=== PATIENT | male | born 1950 ===

== ENCOUNTER → 2018-04-18 | Outpatient (CLI) | payer OTHER | LOC: CIMAGING 12:50 | PROVIDERS: ATTEND Orthopaedic Surgery | DX: M16.11 Unilateral primary osteoarthritis, right hip (principal) | CPT/HCPCS: 36415-PO; 73700-PO ==

== ENCOUNTER 2018-04-27 08:00 | Inpatient (IN) | payer OTHER ==
--- NOTE | 2018-04-27 06:26 | PDHPUP ---
History & Physical Update H&P update statement: This history and physical update is based on an assessment of the patient which was completed after admission or registration (within 24 hours), but prior to the surgery/procedure. H&P update: H&P reviewed & patient examined, no change in patient's condition since H&P completed
[~2018-04-27 08:00] MED LIST: ROPIVACAINE 0.2% 80 MG, EPINEPHrine 0.2 MG, KETOROLAC TROMETHAMINE 30 MG in SYRINGE 0 ML IU ONE; TRANEXAMIC ACID 3,000 MG in NS (SYRINGE) 50 ML IRR ONE
[2018-04-27] MEDS ORDERED: TRANEXAMIC ACID 3,000 MG/50 ML BAG IRR ONE (08:40)
[2018-04-27] MEDS ORDERED: ACETAMINOPHEN 325 MG TAB PO ONE (10:21)
[2018-04-27] MEDS ORDERED: FAMOTIDINE 20 MG TAB PO ONE (10:21)
[2018-04-27] MEDS ORDERED: ceFAZolin 2 GM/DEXTROSE 100 ML IV ONE (10:21)
[2018-04-27] MEDS ORDERED: DEXAMETHASONE 4 MG/ML VIAL IVP ONE (10:21)
[2018-04-27] MEDS ORDERED: LIDOCAINE 1% 2 ML INJ ID PRN (10:22)
[2018-04-27] MEDS ORDERED: LR 1,000 ML IV ONE (10:22)
[2018-04-27] MEDS ORDERED: MIDAZOLAM 2 MG/2 ML VIAL IVP ONE ×2 (11:08→11:41)
--- NOTE | 2018-04-27 11:08 | PDANEPAE ---
ANE History of Present Illness here for R DAVIDSON ANE Past Medical History - Cardiovascular History Hx Hypertension: No Hx Arrhythmias: No Hx Chest Pain: No Hx Coronary Artery / Peripheral Vascular Disease: No Hx CHF / Valvular Disease: No Hx Palpitations: No - Pulmonary History Hx COPD: No Hx Asthma/Reactive Airway Disease: Yes Hx Recent Upper Respiratory Infection: No Hx Oxygen in Use at Home: No Hx Sleep Apnea: No Sleep Apnea Screening Result - Last Documented: Negative Pulmonary History Comment: ASTHMA MANY YEARS UNAWARE OF WHAT TRIGGERS HAS INHALER - Neurologic History Hx Cerebrovascular Accident: No Hx Seizures: No Hx Dementia: No - Endocrine History Hx Diabetes: No - Renal History Hx Renal Disorders: No - Liver History Hx Hepatic Disorders: No - Neurological & Psychiatric Hx Hx Neurological and Psychiatric Disorders: No - Cancer History Hx Cancer: No - Congenital Disorder History Hx Congenital Disorders: No - GI History Hx Gastrointestinal Disorders: No - Other Health History Other Health History: OSTEOARTHRITIS. DENTAL IMPLANT - Chronic Pain History Chronic Pain: Yes (RUTH KNEES, RT HIP) - Surgical History Prior Surgeries: LT SHLDR RTC. RT KNEE SCOPE. RT TIB/FIB ANE Review of Systems Review of systems is: negative Review of Systems: - Exercise capacity Exercise capacity: >=4 METS METS (RN): 6 METS ANE Patient History - Allergies Allergies/Adverse Reactions: No Known Allergies Allergy (Unverified 03/15/18 11:27) - Home Medications Home medications: home medication list seen and reviewed Home Medications: Ibuprofen [Motrin (*)] 200 mg PO DAILY PRN 03/15/18 [Last Taken 04/13/18] - NPO status NPO Status: no food or drink >8 hours NPO Since - Liquids (Date): 04/27/18 NPO Since - Liquids (Time): 10:00 NPO Since - Solids (Date): 04/26/18 NPO Since - Solids (Time): 22:00 - Anes Hx Anes Hx: no prior problems - Smoking Hx Smoking Status: Never smoked ANE Labs/Vital Signs - Vital Signs Blood Pressure: 133/93 Heart Rate: 65 Respiratory Rate: 12 O2 Sat (%): 95 Height: 172.72 cm Weight: 88.451 kg ANE Physical Exam - Airway Neck exam: FROM Mallampati Score: Class 1 - Pulmonary Pulmonary: no respiratory distress - Cardiovascular Cardiovascular: regular rate and rhythym ANE Anesthesia Plan Anesthesia Plan: spinal
[2018-04-27] MEDS ORDERED: PROPOFOL/EMULSION 500 MG/50 ML BOTTLE IV ONE (11:55)
[2018-04-27] MEDS ORDERED: PROPOFOL 200 MG/20 ML VIAL ONE (12:39)
[2018-04-27] MEDS ORDERED: PHENYLEPHRINE HCL 100 MCG/ML SYR ONE (12:41)
[2018-04-27] MEDS ORDERED: diphenhydrAMINE 25 MG CAP PO PRN (13:22)
[2018-04-27] MEDS ORDERED: BISACODYL 10 MG SUPP PR PRN (13:22)
[2018-04-27] MEDS ORDERED: PROMETHAZINE HCL 25 MG/ML INJ IVP PRN (13:22)
[2018-04-27] MEDS ORDERED: ONDANSETRON DISINTEGRATING 4 MG TAB PO PRN (13:22)
[2018-04-27] MEDS ORDERED: MAGNESIUM HYDROXIDE 30 ML UDCUP PO PRN (13:22)
[2018-04-27] MEDS ORDERED: PROMETHAZINE HCL 25 MG SUPPR PR PRN (13:22)
[2018-04-27] MEDS ORDERED: DIPHENOXYLATE/ATROPINE LOMOTIL 1 TAB PO PRN (13:22)
[2018-04-27] MEDS ORDERED: ONDANSETRON 4 MG/2 ML VIAL IVP PRN (13:22)
[2018-04-27] MEDS ORDERED: LACTULOSE 20 GM/30 ML UDCUP PO PRN (13:22)
[2018-04-27] MEDS ORDERED: TEMAZEPAM 15 MG CAP PO PRN (13:22)
[2018-04-27] MEDS ORDERED: oxyCODONE IR 5 MG TAB PO PRN (13:22)
[2018-04-27] MEDS ORDERED: POLYETHYLENE GLYCOL 3350 17 GM PKT PO PRN (13:22)
[2018-04-27] MEDS ORDERED: METOCLOPRAMIDE 10 MG/2 ML VIAL IVP PRN (13:22)
--- NOTE | 2018-04-27 13:22 | POSTOPPROG ---
Post Op Note Date of Operation: 04/27/18 Surgeon: Melani Bautista Medical Attendant: maribell bautista PA-C Anesthesiologist: dr. rubio Anesthesia: Spinal Pre-op Diagnosis: right hip OA Post-op Diagnosis: same Indication: right hip pain Procedure: R DAVIDSON ant approach Findings: severe hip OA Inf/Abcess present in the surg proc area at time of surgery?: No EBL: 100-500
[2018-04-27] MEDS ORDERED: LR 1,000 ML IV SCH (13:30)
--- NOTE | 2018-04-27 14:13 | PDMN ---
Medical Necessity Medical necessity: CPT 97165 [facility] IP only procedure R DAVIDSON
[2018-04-27] MEDS: ACETAMINOPHEN 325 MG TAB PO SCH ×2 (17:17→23:38)
[2018-04-27] MEDS: CYCLOBENZAPRINE 10 MG TAB PO PRN (17:17)
--- NOTE | 2018-04-27 17:39 | POSTANESTH ---
Post Anesthetic Evaluation Cardiovascular Status: Normal, Stable Respiratory Status: Normal, Stable Level of Consciousness/Mental Status: Can Participate in Eval Pain Control: Adequate, Prn Tx Ordered Nausea/Vomiting Control: Adequate, Prn Tx Ordered Complications Possibly Related to Anesthesia: None Noted
[2018-04-27] MEDS: SENNOSIDES/DOCUSATE SODIUM TAB PO SCH (20:06)
[2018-04-27] MEDS: FAMOTIDINE 20 MG TAB PO SCH (20:06)
[2018-04-27] MEDS: ASPIRIN 81 MG CHEWABLE TAB PO SCH (20:06)
[2018-04-27] MEDS: ceFAZolin 2 GM/DEXTROSE 100 ML IV SCH (20:07)
[2018-04-28] MEDS: ceFAZolin 2 GM/DEXTROSE 100 ML IV SCH (04:07)
[2018-04-28] MEDS: ACETAMINOPHEN 325 MG TAB PO SCH (05:41)
[2018-04-28 07:45] VITALS: BP 104/64
[2018-04-28] MEDS: FAMOTIDINE 20 MG TAB PO SCH (08:08)
[2018-04-28] MEDS: SENNOSIDES/DOCUSATE SODIUM TAB PO SCH (08:08)
[2018-04-28] MEDS: ASPIRIN 81 MG CHEWABLE TAB PO SCH (08:08)
--- NOTE | 2018-04-28 08:38 | SOAPPROG ---
SOAP Progress Note Assessment/Plan: Assessment: Patient is doing well POD 1 s/p R DAVIDSON Pain management: pain is well controlled on oral pain meds. VTE ppx: recommend aspirin 81 mg BID for 4 weeks, cont KIM and SCDs Anemia: level is expected initially postop. Asymptomatic. Continue to monitor D/c planning: d/c to home today pending release from PT Plan: 04/28/18 08:37 Subjective: patient is doing well today, denies SOB, chest pain and N/V. Objective: Vital Signs Temp Pulse Resp BP Pulse Ox 36.3 C 80 16 104/64 94 04/28/18 07:45 04/28/18 07:45 04/28/18 07:45 04/28/18 07:45 04/28/18 07:45 Laboratory Results 04/28/18 04:25 04/27/18 04/28/18 04/29/18 05:59 05:59 05:59 Intake Total 3535 500 Output Total 1625 Balance 1910 500 RLE: incision dressing is clean and dry, NVi, +pf/df ICD10 Worksheet Patient Problems: Problems Problem Status Onset Primary localized osteoarthritis of right hip Acute
--- NOTE | 2018-04-28 09:42 | ASMTLACE ---
LACE Length of stay for Answers: 2 days current admission Acuity / Level of Answers: Yes Care: Did the patient have an inpatient admission? Comorbidities - select Answers: Opioid dependence all that apply / Chronic pain # of Emergency department Answers: 0 visits in the last 6 months Score: 9 Date Signed: 04/28/2018 09:41 AM Electronically Signed By:FITZ Chavez
[2018-04-28] MEDS: CYCLOBENZAPRINE 10 MG TAB PO PRN (09:59)
--- NOTE | 2018-04-28 11:35 | GOP ---
DATE OF OPERATION: 04/27/2018 SURGEON: Isaak Urbina MD JOB SPOTTER: MARII Garner. ANESTHESIA: Spinal. PREOPERATIVE DIAGNOSIS: Right hip osteoarthritis. POSTOPERATIVE DIAGNOSIS: Right hip osteoarthritis. PROCEDURE PERFORMED: Right total hip arthroplasty with x-ray. FINDINGS: ESTIMATED BLOOD LOSS: 200 cc. INDICATIONS: The patient has progressively worsening arthritis of the hip which has failed medical management. The patient understands the treatment options including continued non-operative care and has selected surgical intervention. The patient has decided to undergo total hip arthroplasty via the direct anterior approach, understanding the risks of the procedure including , but not limited to, neurovascular injury, infection, persistent pain, component wear and loosening, deep venous thrombosis, pulmonary embolism, limb length inequality, hip instability (including dislocation), and intra-operative fractures. DESCRIPTION OF PROCEDURE: After proper identification of the patient including verification and marking the surgical site, the patient was brought to the operating room and placed in the supine position. All bony prominences were well padded. Anesthesia was induced without complication and intravenous prophylactic antibiotics were administered prior to skin incision. The operative leg was placed in the Trumpf Arch table extension and the well leg in a Yellofin leg gonzalez. The patient was prepped and draped in the usual sterile fashion. The C-arm was draped for intra-operative fluoroscopy to check acetabular position, femoral component position including leg length and femoral offset. Attention was then drawn to surgical exposure of the hip. An incision was made with a #10 Bard Peter blade starting 3 cm lateral and 3 cm distal to the anterior superior iliac spine measuring 8-10 cm and coursing distally toward the greater trochanter. The skin and subcutaneous tissues were divided sharply down to the fascia gopal. The fascia gopal was incised in line with the skin incision exposing the underlying tensor fascia gopal muscle. The muscle was bluntly elevated from the fascia and the first extracapsular Cobra retractor was placed laterally at the junction of the superior femoral neck and greater trochanter. The lateral femoral circumflex vessels were identified, cauterized , and divided with the Aquamantys bipolar cautery. The deep investing fascia of the TFL was divided to allow proper mobilization of the muscle preventing damage during the retraction. The reflected head of the rectus femoris muscle was elevated off the anterior hip capsule and a medial Cobra retractor was placed just proximal to the lesser trochanter. The anterior capsulotomy was made sharply from the superolateral acetabulum to the saddle junction of the superior femoral neck and greater trochanter, then coursing inferomedial towards the lesser trochanter. The retractors were then placed in the intracapsular position for femoral neck osteotomy. Corresponding to pre-operative templating, the osteotomy was made with the oscillating saw carefully protecting the greater trochanter and soft tissues. The femoral head was removed from the acetabulum with a corkscrew and confirmed to be severely arthritic with exposed bone, deformity and osteophytes. Similar findings were confirmed in the acetabulum. The Arch table extension was then placed in 40 degrees external rotation. Attention was then drawn to the acetabular preparation. After placement of the anterior and posterior Cobra retractors outside the labrum and intracapsular, the circumferential labrum was removed sharply. The foveal contents were then removed and hemostasis obtained with cautery. The first reamer selected was sized using the removed femoral head. Reaming began with medialization and then commenced in 2 mm increments at 45 degrees of abduction and 15 degrees of anteversion using fluoroscopic navigation. Reaming ceased 1 mm less than the definitive acetabular component and corresponded to the pre-operative templating. The final acetabular component was inserted using fluoroscopy to achieve proper orientation yielding excellent purchase and stability in the acetabulum. The final acetabular liner was then placed and its seating confirmed. Attention was then turned to the femur. The Arch table extension was placed in extension and adduction, delivering the osteotomized femoral neck into the wound. A 2-pronged femoral elevator was placed at the calcar and another at the tip of the greater trochanter. The posterolateral capsule was released with cautery allowing mobilization of the femur lateral and anterior for preparation. The external rotators were visualized and preserved. A curette and rongeur were used to open the starting point for broaching. Serial broaching started with the #0 broach and ended with the broach that exhibited excellent fit in the proximal femur. A change in pitch during mallet strikes was accompanied by the inability to advance the broach any further. The trial reduction was performed and fluoroscopic navigation was utilized to check limb length. Adjustments were made to equalize limb length accordingly. After the final trials were accepted they were removed and the wound was copiously lavaged. The femoral component was seated to the same depth as the final broach and the femoral head was impacted onto the clean trunnion. The hip was then reduced for the final time and once more fluoroscopy was used to check that limb length equality was achieved. The wound was irrigated and closed in layers, the fascia gopal with 2-0 Quill, the subcutaneous tissue with 2-0 Quill, and the skin with Dermabond. Sterile dressings were applied. Final sharps and sponge counts were accurate. The patient was then transferred to a hospital bed and brought to the recovery room in stable condition. IMPLANTS: Accolade II size 4 at 127, acetabular component a 58 mm Trident II, liner is a Trident X3 36 mm, head is a Biolox Delta 36 mm +2.5. /[id number]/MODL MTDD
== END 2018-04-28 10:15 | disposition home or self-care (01) | DRG 470 ==
LOC: F3E 10:10 → F3N 14:35
PROVIDERS: ADMIT Orthopaedic Surgery; ATTEND Orthopaedic Surgery
PROC: 0SR904Z Replacement of Right Hip Joint with Ceramic on Polyethylene Synthetic Substitute, Open Approach (ICD-10-PCS; principal; 2018-04-27 12:00)
DX: M16.11 Unilateral primary osteoarthritis, right hip (principal); J45.909 Unspecified asthma, uncomplicated; Z23 Encounter for immunization
CPT/HCPCS: 97161-GP; G0008; G8978-GP-CI; G8979-GP-CI; G8980-GP-CI; J0171; J0690; J1100; J1885; J2250; J2370; J2704; J2795